=== PATIENT | female | born 1965 | race American Indian/Alaskan Native ===

== ENCOUNTER 2019-08-27 10:26 | Emergency (ER) | payer SELFPAY ==
[2019-08-27 11:34] LABS: Bilirubin,Urine NEG (Negative); Blood,Urine SM (Negative); Color,Urine Yellow (Yellow); Mucus,Urine FEW /HPF; Protein,Urine <15 mg/dL mg/dL (Negative); Urobilinogen,Urine < 2.0 mg/dL (<2.0); WBC,Urine < 1.0 /HPF (0.0-6.0)
[2019-08-27] MEDS ORDERED: LIDOCAINE-MPF (1%) 10 MG/1 ML VIAL 5 ML INFILTRATI ONE (12:23)
--- NOTE | 2019-08-27 12:24 | Emergency Department Report ---
ED Female HPI - General Chief complaint: Urogenital-Female Stated complaint: POSS UTI Time Seen by Provider: 08/27/19 11:09 Source: patient Mode of arrival: Ambulatory Limitations: No Limitations - History of Present Illness Initial comments: Patient is a 53-year-old female presents emergency room with complaints of dysuria and suprapubic abdominal pressure that began a couple of days ago. She denies any fever, nausea, vomiting, diarrhea, back pain, vaginal discharge. She states that she is sexually active and does not use protection. She has a past medical history of hypertension and states that she did not take her lisinopril today. She denies any allergies to medications. - Related Data Home Medications Medication Instructions Recorded Confirmed Last Taken Folic Acid [Folvite] 1 mg PO DAILY 08/31/13 08/31/13 08/30/13 Ubidecarenone [Co Q-10] 10 mg PO 08/31/13 08/31/13 Unknown lisinopriL [Zestril] 20 mg PO QDAY 08/31/13 08/31/13 Unknown Previous Rx's Medication Instructions Recorded Last Taken Type Omeprazole [PriLOSEC] 20 mg PO QDAY #30 capsule. 08/31/13 Unknown Rx Ondansetron [Zofran Odt] 4 mg PO Q6H PRN #10 tab.rapdis 08/31/13 Unknown Rx Sulfamethoxazole/Trimethoprim 1 each PO BID #14 tablet 08/31/13 Unknown Rx [Bactrim Ds] Azithromycin 1,000 mg PO ONCE 1 Days #2 tablet 08/27/19 Unknown Rx Allergies Allergy/AdvReac Type Severity Reaction Status Date / Time No Known Allergies Allergy Unverified 08/31/13 16:17 ED Review of Systems ROS: Stated complaint: POSS UTI Other details as noted in HPI Comment: All other systems reviewed and negative ED Past Medical Hx - Past Medical History Previous Medical History?: Yes Hx Hypertension: Yes Hx GERD: Yes (Irritable bowel) - Surgical History Past Surgical History?: Yes Additional Surgical History: Hysterectomy, x 2, Tubaligation - Social History Smoking Status: Never Smoker Substance Use Type: Alcohol - Medications Home Medications: Home Medications Medication Instructions Recorded Confirmed Last Taken Type Folic Acid [Folvite] 1 mg PO DAILY 08/31/13 08/31/13 08/30/13 History Omeprazole [PriLOSEC] 20 mg PO QDAY #30 capsule. 08/31/13 Unknown Rx Ondansetron [Zofran Odt] 4 mg PO Q6H PRN #10 tab.rapdis 08/31/13 Unknown Rx Sulfamethoxazole/Trimethoprim 1 each PO BID #14 tablet 08/31/13 Unknown Rx [Bactrim Ds] Ubidecarenone [Co Q-10] 10 mg PO 08/31/13 08/31/13 Unknown History lisinopriL [Zestril] 20 mg PO QDAY 08/31/13 08/31/13 Unknown History Azithromycin 1,000 mg PO ONCE 1 Days #2 tablet 08/27/19 Unknown Rx ED Physical Exam - General Limitations: No Limitations General appearance: alert, in no apparent distress - Head Head exam: Present: atraumatic, normocephalic - Eye Eye exam: Present: normal appearance - ENT ENT exam: Present: mucous membranes moist - Respiratory Respiratory exam: Present: normal lung sounds bilaterally. Absent: respiratory distress, wheezes, rales, rhonchi, stridor, chest wall tenderness, accessory muscle use, decreased breath sounds, prolonged expiratory - Cardiovascular Cardiovascular Exam: Present: regular rate, normal rhythm, normal heart sounds. Absent: systolic murmur, diastolic murmur, rubs, gallop - GI/Abdominal GI/Abdominal exam: Present: soft, normal bowel sounds. Absent: distended, tenderness, guarding, rebound, rigid - Back Exam Back exam: Absent: CVA tenderness (R), CVA tenderness (L) - Neurological Exam Neurological exam: Present: alert, oriented X3 - Psychiatric Psychiatric exam: Present: normal affect, normal mood - Skin Skin exam: Present: warm, dry, intact ED Course Vital Signs 08/27/19 08/27/19 10:28 13:07 Temperature 97.9 F 98.5 F Pulse Rate 115 H 66 Respiratory 18 18 Rate Blood Pressure 168/100 Blood Pressure 181/107 [Right] O2 Sat by Pulse 96 100 Oximetry ED Medical Decision Making - Lab Data Lab Results 08/27/19 Range/Units 10:59 Urine Color Yellow (Yellow) Urine Turbidity Slightly-cloudy (Clear) Urine pH 6.0 (5.0-7.0) Ur Specific [place] 1.013 (1.003-1.030) Urine Protein <15 mg/dl (Negative) mg/dL Urine Glucose (UA) Neg (Negative) mg/dL Urine Ketones Neg (Negative) mg/dL Urine Blood Sm (Negative) Urine Nitrite Neg (Negative) Urine Bilirubin Neg (Negative) Urine Urobilinogen < 2.0 (<2.0) mg/dL Ur Leukocyte Esterase Neg (Negative) Urine WBC (Auto) < 1.0 (0.0-6.0) /HPF Urine RBC (Auto) 1.0 (0.0-6.0) /HPF U Epithel Cells (Auto) 19.0 H (0-13.0) /HPF Urine Mucus Few /HPF Vital Signs 08/27/19 08/27/19 10:28 13:07 Temperature 97.9 F 98.5 F Pulse Rate 115 H 66 Respiratory 18 18 Rate Blood Pressure 168/100 Blood Pressure 181/107 [Right] O2 Sat by Pulse 96 100 Oximetry - Medical Decision Making Patient is a 53-year-old female presents emergency room with complaints of dysuria and suprapubic abdominal pressure that began a couple of days ago. She denies any fever, nausea, vomiting, diarrhea, back pain, vaginal discharge. She states that she is sexually active and does not use protection. She has a past medical history of hypertension and states that she did not take her lisinopril today. She denies any allergies to medications. Vitals with elevated blood pressure and heart rate, heart rate improved to normal upon repeat, blood pressure remains elevated secondary to patient not taking her medication yet today. She states that she will take the medication when she returns home. She is not having any symptoms related to her blood pressure. UA without evidence of UTI. Given that patient is having dysuria and she is sexually active and not using protection patient will be covered for gonorrhea chlamydia. Patient given ceftriaxone IM while in the ED and given prescription for azithromycin. Advised patient to be seen by the health department or another clinic for a full STD panel. advised pt Please take medication as prescribed. Please avoid sexual intercourse. Please have partner tested and treated as well. Please go to a clinic or the health department for a full STD panel. Return to emergency room for any new or worsening symptoms. Please take your blood pressure medication as prescribed by your primary care doctor. Eat a low-sodium diet. Incorporate 30 minutes of daily exercise. Increase your water intake. Keep a blood pressure log and take your blood pressure 3 times a day and take this to the primary care doctor to see how your blood pressure fluctuates. Critical care attestation.: If time is entered above; I have spent that time in minutes in the direct care of this critically ill patient, excluding procedure time. ED Disposition Clinical Impression: Dysuria, Suprapubic pressure, Concern about STD in female without diagnosis Disposition: DC-01 TO HOME OR SELFCARE Is pt being admited?: No Does the pt Need Aspirin: No Condition: Stable Instructions: Sexually Transmitted Diseases (ED), Safe Sex (ED), Dysuria (ED) Additional Instructions: Please take medication as prescribed. Please avoid sexual intercourse. Please have partner tested and treated as well. Please go to a clinic or the health department for a full STD panel. Return to emergency room for any new or worsening symptoms. Please take your blood pressure medication as prescribed by your primary care doctor. Eat a low-sodium diet. Incorporate 30 minutes of daily exercise. Increase your water intake. Keep a blood pressure log and take your blood pressure 3 times a day and take this to the primary care doctor to see how your blood pressure fluctuates. [facility] Address: [address] [place] [id number] Prescriptions: Azithromycin 1,000 mg PO ONCE 1 Days #2 tablet Referrals: EVERETT FATIMA MD [Staff Physician] - 3-5 Days [facility] [Provider Group] - 3-5 Days [facility] [Outside] - 3-5 Days Time of Disposition: 12:21 Print Language: GERMAN
[2019-08-27 13:07] VITALS: BP 181/107
== END 2019-08-27 13:06 | disposition home or self-care (01) ==
LOC: ED 10:26
DX: R30.0 Dysuria (principal); R10.2 Pelvic and perineal pain; I10 Essential (primary) hypertension; K21.9 Gastro-esophageal reflux disease without esophagitis; Z79.899 Other long term (current) drug therapy; Z98.890 Other specified postprocedural states; Z90.710 Acquired absence of both cervix and uterus; Z98.51 Tubal ligation status; Z71.1 Person with feared health complaint in whom no diagnosis is made
CPT/HCPCS: 81001; 96372; 99283; J0696